=== PATIENT | male | born 2005 | race Caucasian/White ===

== ENCOUNTER 2025-06-19 09:28 | Emergency (ER) | payer OTHER, SELFPAY ==
[2025-06-19 09:30] VITALS: BP 109/97; PULSE 111; RESP 16; TEMP 36.6; O2SAT 99
--- NOTE | 2025-06-19 09:40 | ED.VIS.GI ---
HPI HPI - GI History of Present Illness Chief Complaint: Abd Pain Detail of Chief Complaint: Nausea and vomiting last night. Informant: patient and parent Abdominal Pain/Flank Pain Onset: Today and Yesterday Context: Gradual Onset Timing: Continuous Quality: Cramping Location: - (Periumbilical) Current Severity: Mild Maximum Severity: Mild Worsened by: Nothing Relieved by: Nothing Nausea/Vomiting/Emesis GI Symptom: Positive for Nausea and Vomiting Onset: Today and Yesterday Severity: Mild Diarrhea/Melena/Hematochezia GI Symptom: Negative for Diarrhea, Melena or Hematochezia Associated Symptoms Associated Symptoms: Negative for Dysuria, Frequency, Hematuria or Urgency Narrative Narrative: 20-year-old male no [facility] past medical history. No prior abdominal surgeries. Says last night started having nausea vomiting and then developed periumbilical abdominal discomfort. Subjective fever no diarrhea. No dysuria. No abdominal trauma. Has never had any abdominal surgeries. No one else at home currently is ill. Prior similar symptoms: Yes Recent Illness/Hospitalization: No PFSH PFSH Medical History no medical history no medical history Home Medications ?Medication ?Instructions ?Recorded ?Last Taken ?Type ondansetron 4 mg disintegrating 4 mg PO Q6H PRN nausea and 06/19/25 Unknown Rx tablet vomiting #7 tabs Allergy/AdvReac Type Severity Reaction Status Date / Time No Known Allergies Allergy Verified 06/19/25 09:32 Surgical History (Updated 06/19/25 @ 09:46 by Dennise Engel) Hx of eye surgery Surgical History no surgical history no surgical history Social History Smoking Status: Never smoker alcohol intake: never ROS ROS ED ROS Narrative Nausea and vomiting. Abdominal pain. Periumbilical. Subjective fever. Constitutional Constitutional ED: Reports chills, fever(s) and subjective ENT ENT ED: Denies ear pain Cardiovascular Cardiovascular: Denies chest pain Respiratory/Chest Respiratory/Chest: Denies cough or dyspnea Gastrointestinal Gastrointestinal: Reports abdominal pain, nausea and vomiting; Denies constipation, diarrhea or melena Genitourinary Genitourinary ED: Denies dysuria or hematuria Musculoskeletal Musculoskeletal: Denies arthralgias or back pain Integumentary Denies abscess Neurologic Neurologic: Denies headache(s) Psychiatric Psychiatric: Denies anxiety Endocrine Endocrinology: Denies polydipsia Hematologic/Lymphatic Hematologic/Lymphatic: Denies easy bleeding Allergic/Immunologic Allergic/Immunologic ED: Denies mouth swelling, tongue swelling or urticaria EXAM Physical Exam Narrative Exam Narrative: 20-year-old male sitting upright in bed vital signs are stable afebrile. Both parents are present in room. Patient does not look septic toxic. H EENT exam pupils round reactive light. Mild dry mucous membranes. Neck nontender no JVD. No lymphadenopathy. Back nontender. Lungs clear to auscultation bilaterally. Heart tachycardic 110 no murmur. Chest wall ribs nontender. Abdomen soft, nontender, nondistended, normal bowel sounds without peritoneal signs. No right upper or right lower quadrant tenderness. No hernia or mass. No distention. Moving all 4 extremities. Nontender no edema. Back nontender. Neurologically is awake alert. He is answering questions following commands. Benign exam. Const Vital Signs: 06/19/25 09:30 Temperature 98 F Temperature Source Oral Pulse Rate 111 H Respiratory Rate 16 Blood Pressure 109/97 H Blood Pressure Mean 101 Pulse Ox 99 Oxygen Delivery Method Room Air MDM MDM MDM Narrative Medical decision making narrative: 20-year-old male nausea vomiting abdominal discomfort but no reproducible abdominal pain clinically does not appear to be appendicitis or cholecystitis is good no signs of bowel obstruction. He will be hydrated the liter of fluid. Toradol for discomfort. CBC and a chemistry. He is having no urinary symptoms. I do not think he needs imaging initially. If his labs are significant off that will be consideration. Repeat exam around patient looks good. He is feeling better. Currently his pain-free. Repeat abdominal exam is completely nontender. Deep palpation in the right lower quadrant and right upper quadrant completely nontender. He is nondistended. Says he feels well. Will get a p.o. challenge if he does well that will be discharged home clinically I think this is a viral syndrome. I discussed his test results of both he and his dad present in the room. They are comfortable being discharged to home. They know to return if worse. History & Record Review Discussion w/independent historian: Patient and Family Additional record(s) reviewed:: No prior records Lab Data Attestation: I reviewed the patient's lab results. Lab results narrative: CBC shows a white count 8.5. H&H is 17 and 50. Platelets 223. BMP shows gap 11. Beta creatinine of 20 and 0.9. Glucose 111. Labs: Laboratory Results - last 24 hr 06/19/25 09:57 WBC 8.5 RBC 5.80 Hgb 17.3 H Hct 50.7 MCV 87.4 MCH 29.8 MCHC 34.1 RDW Std Deviation 39.0 RDW Coeff of Eli 12.2 Plt Count 223 MPV 9.6 Immature Gran % (Auto) 0.400 Neut % (Auto) 80.3 H Lymph % (Auto) 8.4 L Meeker % (Auto) 10.5 H Eos % (Auto) 0.2 Baso % (Auto) 0.2 Absolute Neuts (auto) 6.8 Absolute Lymphs (auto) 0.71 L Nucleated RBC % 0 Sodium 139 Potassium 3.7 Chloride 100 Carbon Dioxide 27.3 Anion Gap 11 BUN 20 H Creatinine 0.91 Est GFR (MDRD) Non-Af 124 BUN/Creatinine Ratio 22.4 H Glucose 111 H Calcium 9.7 Discharge Plan Triage Chief Complaint: Abd Pain ED Provider: Aiden Melendrez Dx/Rx/DC Orders Clinical Impression: Viral syndrome, Nausea & vomiting, Abdominal pain Instructions: ED Viral Syndrome (Adult) Prescriptions: New ondansetron 4 mg tablet,disintegrating 4 mg PO Q6H PRN (Reason: nausea and vomiting) Qty: 7 0RF Activity Restrictions/Additional Instructions: Plenty of fluids and rest. Increase diet slowly as tolerated. Return if unable to keep fluids down or feeling worse or have any worsening pain. Motrin and Tylenol for pain. Zofran as needed for nausea. If you are not nauseated you do not need to take it. Print Language: Afghan Disposition Disposition: Home, Self Care
[2025-06-19] MEDS: 0.9% Normal Saline (1000mL) 1,000 ML 999 ML IV (09:58)
[2025-06-19] MEDS: Ketorolac 30 MG/ML Syringe IV (09:58)
[2025-06-19 10:10] LABS: Hematocrit 50.7 % (40-54); Hemoglobin 17.3 g/dL (13.0-16.5); Immature Granulocytes Count 0.030 X10^3/uL (0.0-0.0); Mean Corp Hgb Conc 34.1 g/dL (32-36); Mean Corpuscular Volume 87.4 fL (80-94); Mean Platelet Vol. 9.6 fl (6.2-12.0); NRBC Flagged by Analyzer 0 % (0-5); Platelet Count 223 K/mm3 (150-450); RBC Distribution Width CV 12.2 % (11.6-14.6); RBC Distribution Width SD 39.0 fl (35.1-43.9); Red Blood Count 5.80 M/mm3 (4.6-6.2); White Blood Count 8.5 K/mm3 (4.4-11.0)
[2025-06-19 10:29] LABS: Anion Gap 11 (5-15); BUN 20 mg/dL (4-19); BUN/Creat Ratio 22.4 RATIO (10-20); Calcium,Total 9.7 mg/dL (7.6-11.0); Carbon Dioxide 27.3 mmol/L (21.0-32.0); Chloride 100 mmol/L (98-108); Glucose 111 mg/dL (70-99); Potassium 3.7 mmol/L (3.3-5.1)
[2025-06-19 11:28] VITALS: BP 128/62; PULSE 72; RESP 16; O2SAT 99
[2025-06-19 11:46] VITALS: BP 138/60; PULSE 82; RESP 16; TEMP 36.6; O2SAT 100
== END 2025-06-19 11:47 | disposition home or self-care (01) ==
LOC: ED 11:18
PROVIDERS: Emergency Provider Emergency Medicine; Visit Provider Emergency Medicine
DX: B34.9 Viral infection, unspecified (principal); R11.2 Nausea with vomiting, unspecified; R10.9 Unspecified abdominal pain
CPT/HCPCS: 80048; 85025; 96361; 96374; 99283; A4216